=== PATIENT | female | born 1970 | race Caucasian/White ===

== ENCOUNTER 2017-10-22 02:16 | Emergency (ER) | payer OTHER | END 2017-10-22 02:57 | disposition left against medical advice (07) | LOC: ED 02:16 | DX: Z53.21 Procedure and treatment not carried out due to patient leaving prior to being seen by health care provider (principal) ==

== ENCOUNTER 2020-04-11 13:41 | Inpatient (IN) | payer OTHER ==
[~2020-04-11] VITALS: Ht 157.5 cm; Wt 101.6 kg
[2020-04-11 13:56] VITALS: Ht 157.5 cm; Wt 101.6 kg
[2020-04-11 14:58] LABS: BASOPHIL % 0.2 % (0-2)
[2020-04-11 15:02] LABS: PLATELET COUNT 517 x10^3mcL (130-400); RED CELL DISTRIBUTION WIDTH 20.3 % (11.5-14.5)
[2020-04-11 15:30] LABS: rbc morphology (normal/abnorm) ABNORMAL (NORMAL)
[2020-04-11 15:37] LABS: ALBUMIN 3.4 g/dL (3.4-5.0); ALKALINE PHOSPHATASE 87 U/L (46-116); ALT/SGPT 101 U/L (14-59); AST/SGOT 106 U/L (15-37); BILIRUBIN TOTAL 0.53 mg/dL (0.20-1.00); C REACTIVE PROTEIN 0.9 mg/dL (<=0.9); CARBON DIOXIDE 27.6 mmol/L (21-32); CHLORIDE SERUM 103 mmol/L (98-107); CREATININE SERUM 0.9 mg/dL (0.6-1.0); GFR1 > 60 mL/min; GLUCOSE SERUM 112 mg/dL (74-106); LACTIC DEHYDROGENASE (LDH) 294 U/L (100-190); SODIUM SERUM 138 mmol/L (136-145); TOTAL PROTEIN, SERUM 7.8 g/dL (6.4-8.2)
[2020-04-11 15:41] LABS: CALCIUM 8.6 mg/dL (8.5-10.1)
[2020-04-11 17:18] LABS: CHOLESTEROL/HDL RATIO 9.3
[2020-04-11 18:02] LABS: UA SPECIFIC GRAVITY 1.015 (1.005-1.035); microscopic required? YES; urine erythrocyte NEGATIVE (NEGATIVE)
[2020-04-11 19:48] VITALS: BP 174/96
[2020-04-11 20:40] VITALS: BP 148/96
[2020-04-11 21:37] LABS: TOTAL IRON BINDING CAPACITY 429 ug/dL (250-450)
[2020-04-11 21:46] LABS: IRON 19 ug/dL (50-170)
[2020-04-12] VITALS (7 sets, daily range): BP systolic 141–180; BP diastolic 72–96
[2020-04-12 08:48] LABS: ALKALINE PHOSPHATASE 79 U/L (46-116); ALT/SGPT 77 U/L (14-59); AST/SGOT 62 U/L (15-37); BILIRUBIN TOTAL 0.4 mg/dL (0.20-1.00); CALCIUM 8.4 mg/dL (8.5-10.1); CARBON DIOXIDE 24.5 mmol/L (21-32); CHLORIDE SERUM 104 mmol/L (98-107); CREATININE SERUM 0.8 mg/dL (0.6-1.0); GFR1 > 60 mL/min; GLUCOSE SERUM 153 mg/dL (74-106); PHOSPHOROUS 3.5 mg/dL (2.5-4.9); POTASSIUM SERUM 3.6 mmol/L (3.5-5.1); SODIUM SERUM 140 mmol/L (136-145); TOTAL PROTEIN, SERUM 7.5 g/dL (6.4-8.2)
[2020-04-12 08:53] LABS: ALBUMIN 3.1 g/dL (3.4-5.0)
[2020-04-12 11:32] LABS: BASOPHIL % 0 % (0-2); RED CELL DISTRIBUTION WIDTH 20.7 % (11.5-14.5)
[2020-04-12 12:07] LABS: PLATELET COUNT 659 x10^3mcL (130-400)
[2020-04-12 13:48] LABS: AMPHETAMINE QUAL UR POSITIVE (See below)
[2020-04-13 04:35] VITALS: BP 141/74
[2020-04-13 08:08] LABS: ALKALINE PHOSPHATASE 79 U/L (46-116); ALT/SGPT 65 U/L (14-59); AST/SGOT 43 U/L (15-37); CALCIUM 8.9 mg/dL (8.5-10.1); CARBON DIOXIDE 25.3 mmol/L (21-32); CHLORIDE SERUM 105 mmol/L (98-107); CREATININE SERUM 0.9 mg/dL (0.6-1.0); GFR1 > 60 mL/min; GLUCOSE SERUM 126 mg/dL (74-106); MAGNESIUM 2.3 mg/dL (1.8-2.4); POTASSIUM SERUM 4.3 mmol/L (3.5-5.1); SODIUM SERUM 139 mmol/L (136-145); TOTAL PROTEIN, SERUM 7.2 g/dL (6.4-8.2)
[2020-04-13 08:38] LABS: PHOSPHOROUS 4.3 mg/dL (2.5-4.9)
[2020-04-13 08:42] LABS: ALBUMIN 3.2 g/dL (3.4-5.0)
[2020-04-13 08:50] LABS: C REACTIVE PROTEIN 0.2 mg/dL (<=0.9)
[2020-04-13 09:06] VITALS: BP 148/73
[2020-04-13 09:12] LABS: PLATELET COUNT 621 x10^3mcL (130-400); RED CELL DISTRIBUTION WIDTH 20.8 % (11.5-14.5)
[2020-04-13 13:14] VITALS: BP 159/83
[2020-04-13 13:57] LABS: BAND NEUTROPHIL 4 % (0-10); MONOCYTE 5 % (0-7); SEGMENTED NEUTROPHILS 79 % (37-75); ovalocyte/elliptocyte 1+; rbc morphology (normal/abnorm) ABNORMAL (NORMAL)
[2020-04-13 13:58] LABS: PLATELET MORPHOLOGY PLATELETS INCREASED
[2020-04-13 16:52] VITALS: BP 155/80
[2020-04-13 17:29] VITALS: BP 129/87
[2020-04-13 22:56] VITALS: BP 152/71
[2020-04-14 05:36] VITALS: BP 126/84
[2020-04-14 08:01] LABS: BASOPHIL % 0 % (0-2); RED CELL DISTRIBUTION WIDTH 21.1 % (11.5-14.5)
[2020-04-14 08:38] VITALS: BP 165/82
[2020-04-14 09:15] LABS: ALKALINE PHOSPHATASE 83 U/L (46-116); ALT/SGPT 71 U/L (14-59); AST/SGOT 50 U/L (15-37); CALCIUM 8.7 mg/dL (8.5-10.1); CARBON DIOXIDE 22.6 mmol/L (21-32); CHLORIDE SERUM 106 mmol/L (98-107); CREATININE SERUM 0.8 mg/dL (0.6-1.0); GFR1 > 60 mL/min; GLUCOSE SERUM 121 mg/dL (74-106); MAGNESIUM 2.2 mg/dL (1.8-2.4); PHOSPHOROUS 3.7 mg/dL (2.5-4.9); POTASSIUM SERUM 3.7 mmol/L (3.5-5.1); SODIUM SERUM 139 mmol/L (136-145); TOTAL PROTEIN, SERUM 7.3 g/dL (6.4-8.2)
[2020-04-14 09:18] LABS: ALBUMIN 3.1 g/dL (3.4-5.0)
[2020-04-14 13:58] VITALS: BP 154/84
[2020-04-14 14:05] LABS: rbc morphology (normal/abnorm) ABNORMAL (NORMAL)
[2020-04-14 14:06] LABS: ovalocyte/elliptocyte 1+
[2020-04-14 14:48] LABS: PLATELET COUNT 542 x10^3mcL (130-400)
[2020-04-14 18:18] VITALS: BP 164/64
[2020-04-14 19:48] VITALS: BP 160/87
[2020-04-15 05:46] VITALS: BP 152/89
[2020-04-15 07:49] LABS: BASOPHIL % 0.9 % (0-2)
[2020-04-15 08:05] LABS: CALCIUM 8.8 mg/dL (8.5-10.1); CARBON DIOXIDE 28.1 mmol/L (21-32); CHLORIDE SERUM 102 mmol/L (98-107); CREATININE SERUM 0.8 mg/dL (0.6-1.0); GFR1 > 60 mL/min; GLUCOSE SERUM 124 mg/dL (74-106); MAGNESIUM 2.2 mg/dL (1.8-2.4); PHOSPHOROUS 4.3 mg/dL (2.5-4.9); POTASSIUM SERUM 4.2 mmol/L (3.5-5.1); SODIUM SERUM 138 mmol/L (136-145)
[2020-04-15 08:57] LABS: RED CELL DISTRIBUTION WIDTH 21.1 % (11.5-14.5)
[2020-04-15 09:30] VITALS: BP 159/77
[2020-04-15 10:28] LABS: PLATELET COUNT 602 x10^3mcL (130-400)
[2020-04-15] MEDS ORDERED: XARELTO20 M1 PO (10:53)
[2020-04-15] MEDS ORDERED: XARELTO15 M1 PO (10:53)
[2020-04-15] MEDS ORDERED: ZES5 PO (11:05)
[2020-04-15] MEDS ORDERED: METOPROLOL TART25 M1 PO (11:05)
[2020-04-15] MEDS ORDERED: FER300 PO (11:09)
[2020-04-15 11:32] VITALS: BP 159/77
== END 2020-04-15 13:06 | disposition home or self-care (01) | DRG 720 ==
LOC: ED 13:41 → DU 16:18
PROVIDERS: Emergency Medicine; ADMIT Family Medicine; ATTEND Family Medicine
DX: A41.9 Sepsis, unspecified organism (principal); I26.99 Other pulmonary embolism without acute cor pulmonale; I21.4 Non-ST elevation (NSTEMI) myocardial infarction; J96.01 Acute respiratory failure with hypoxia; J18.9 Pneumonia, unspecified organism; D69.6 Thrombocytopenia, unspecified; Z68.41 Body mass index [BMI] 40.0-44.9, adult; J45.909 Unspecified asthma, uncomplicated; F17.210 Nicotine dependence, cigarettes, uncomplicated; J44.9 Chronic obstructive pulmonary disease, unspecified; Z20.828 Contact with and (suspected) exposure to other viral communicable diseases; E66.2 Morbid (severe) obesity with alveolar hypoventilation; J44.0 Chronic obstructive pulmonary disease with (acute) lower respiratory infection; E87.6 Hypokalemia; D64.9 Anemia, unspecified; E78.5 Hyperlipidemia, unspecified; R00.0 Tachycardia, unspecified; Z56.0 Unemployment, unspecified; Z79.899 Other long term (current) drug therapy
CPT/HCPCS: 36600; 82962; 83880; 85378; 87804; 94150; G0378; J0456; J0696; J1100; J1644; J2543; J2920; J3535; J7050; Q0092; Q9967; U0003-CS